=== PATIENT | female | born 1965 | race Caucasian/White ===

== ENCOUNTER 2016-12-04 11:43 | Emergency (ER) | payer BC ==
[~2016-12-04 11:43] MED LIST: ATORVASTATIN CA40 MG PO; B-125000 MC1 SL; BIOTIN PO; FARXIGA PO; LEVOTHYROXINE100 MCG PO; LOSARTAN POTASS25 MG PO; METFORMIN HCL500 MG PO; NEURONTIN300 MG PO
--- NOTE | 2016-12-04 13:38 | DIAGNOSTIC IMAGING REPORT ---
PROCEDURE: XR SHOULDER 2 OR MORE VW-LEFT INDICATION: ARM PAIN TECHNIQUE: Three views of the left shoulder COMPARISON: None. FINDINGS: Normal mineralization. No acute fractures. Normal bony alignment. There are multiple, at least three, slightly amorphous calcifications projecting over the greater tuberosity, some in the soft tissues of the rotator cuff tendon insertion. The undersurface of the acromion appears fairly smooth. No significant AC joint hypertrophy. The glenohumeral joint is intact. The visible rib arcs and the underlying lung are normal. IMPRESSION: 1. Findings of calcific tendonitis involving the rotator cuff tendon insertion site. 2. No fracture, dislocation, or separation.
--- NOTE | 2016-12-04 14:12 | ED ORDER SUMMARY ---
..... Patient: IVAN BYERS OrderSheet [facility] VisitID: [id number] [place] [address] 51y, F Registration Date/Time: 12/04/2016 ORDER SHEET Weight: 91.6 kg (stated) Allergies: Latex, morphine, Septra GENERAL ORDERS: Shoulder 2V or more Left Urgent (12:39 12/04/2016 Douglas Avila) (k 12:55 Isha) (14:34 Gustabo R.N.) MEDICATION ORDERS: Toradol IM 60 mg (NOW) (12:39 12/04/2016 Douglas Avila) (13:17 Karina R.NSakina) IV FLUIDS: ORDER SHEET NOTES: [Electronically signed by Elsie Thornton R.N. (14:34 12/04/2016)] [Electronically signed by Jim Israel Dr. (08:56 12/07/2016)] [Electronically locked/signed by Elsie Thornton R.N. (14:34 12/04/2016)]
--- NOTE | 2016-12-04 14:12 | ED CLINICAL REPORT ---
Clinical Report - Physicians/Mid Levels [facility] [address] [place] [address] 12/04/2016 11:44 Patient: IVAN BYERS Time Seen: 12:26; initial patient contact. Arrived- By private vehicle. Historian- patient. HISTORY OF PRESENT ILLNESS Chief Complaint: Injury to left shoulder. The injury happened about 1 week ago. Occurred at home. Patient did not fall. This was not a twisting injury. Patient is experiencing moderate pain. Patient denies injury to the head or neck. REVIEW OF SYSTEMS No swelling, tingling, numbness or weakness. She has had joint pain. All systems otherwise negative, except as recorded above. PAST HISTORY Restless Legs Syndrome. Hyperlipidemia. Fibromyalgia. Cervical Strain. Pharyngitis. Thyroid Disease. Diabetes Mellitus. Hypertension. Hypothyroidism. Hypercholesterolemia. ADDITIONAL SURGERIES: Hysterectomy. Lap band . Thyroid Surgery. Tonsillectomy. The patient's dominant hand is the right. SOCIAL HISTORY Never smoker. Occasional alcohol use. ADDITIONAL NOTES The nursing notes have been reviewed. PHYSICAL EXAM Vital Signs: 12/04/2016 12:07 BP: 136/94. HR: 100. RR: 18. O2 saturation: 99%. Temp: 98.4 F. Have been reviewed. Hypertensive. Tachycardic. Respiratory rate normal. Temperature normal. Oxygen saturation normal. Neck: Normal inspection. Neck supple. C-spine non-tender. Extremities: Left shoulder: moderate tenderness located in the deltoid muscle. Limited ROM due to pain (diminished abduction and extension). No erythema or swelling. Shoulder otherwise negative. Extremities otherwise negative. Neuro, Vascular and Tendons: Sensation intact. Motor intact. Vascular status intact. Tendon function intact. Neuro: Oriented X 3. No motor deficit. No sensory deficit. LABS, X-RAYS, AND EKG Lt Shoulder X-ray: (1. Findings of calcific tendonitis involving the rotator cuff tendon insertion site. 2. No fracture, dislocation, or separation.). Technique: good. The X-rays were independently viewed by me, interpreted by the radiologist and discussed with the radiologist. PROGRESS AND PROCEDURES Disposition: Discharged home in good and improved condition. Condition: good. CLINICAL IMPRESSION Acute calcific tendonitis in the left shoulder. INSTRUCTIONS Apply ice for 20 minutes four times a day. Don't apply ice directly to skin. Your Current Medications: CONTINUE TAKING THE FOLLOWING MEDICATIONS: Atorvastatin Calcium Oral. Farxiga Oral. Gabapentin Oral. GlyBURIDE Oral. Levothyroxine Sodium Oral. Losartan Potassium Oral. MetFORMIN HCl Oral. Sertraline HCl Oral. Prescription Medications: Zofran (orally disintegrating tablets) 4 mg: take 1 orally every 6 hours as needed for nausea and vomiting. Dispense ten (10). Substitution is permissible. Continue taking your pain medication that you have at home. Follow-up: Follow up with your doctor in about three days. Call for an appointment. Blood pressure screening was not performed during this visit because the patient has an active diagnosis of hypertension. (Electronically signed by Jim Israel Dr. 12/07/2016 8:56)
--- NOTE | 2016-12-04 14:12 | ED CLINICAL REPORT ---
Clinical Report - Physicians/Mid Levels [facility] [address] [place] [address] 12/04/2016 11:44 Patient: IVAN BYERS Time Seen: 12:26; initial patient contact. Arrived- By private vehicle. Historian- patient. HISTORY OF PRESENT ILLNESS Chief Complaint: Injury to left shoulder. The injury happened about 1 week ago. Occurred at home. Patient did not fall. This was not a twisting injury. Patient is experiencing moderate pain. Patient denies injury to the head or neck. REVIEW OF SYSTEMS No swelling, tingling, numbness or weakness. She has had joint pain. All systems otherwise negative, except as recorded above. PAST HISTORY Restless Legs Syndrome. Hyperlipidemia. Fibromyalgia. Cervical Strain. Pharyngitis. Thyroid Disease. Diabetes Mellitus. Hypertension. Hypothyroidism. Hypercholesterolemia. ADDITIONAL SURGERIES: Hysterectomy. Lap band . Thyroid Surgery. Tonsillectomy. The patient's dominant hand is the right. SOCIAL HISTORY Never smoker. Occasional alcohol use. ADDITIONAL NOTES The nursing notes have been reviewed. PHYSICAL EXAM Vital Signs: 12/04/2016 12:07 BP: 136/94. HR: 100. RR: 18. O2 saturation: 99%. Temp: 98.4 F. Have been reviewed. Hypertensive. Tachycardic. Respiratory rate normal. Temperature normal. Oxygen saturation normal. Neck: Normal inspection. Neck supple. C-spine non-tender. Extremities: Left shoulder: moderate tenderness located in the deltoid muscle. Limited ROM due to pain (diminished abduction and extension). No erythema or swelling. Shoulder otherwise negative. Extremities otherwise negative. Neuro, Vascular and Tendons: Sensation intact. Motor intact. Vascular status intact. Tendon function intact. Neuro: Oriented X 3. No motor deficit. No sensory deficit. LABS, X-RAYS, AND EKG Lt Shoulder X-ray: (1. Findings of calcific tendonitis involving the rotator cuff tendon insertion site. 2. No fracture, dislocation, or separation.). Technique: good. The X-rays were independently viewed by me, interpreted by the radiologist and discussed with the radiologist. PROGRESS AND PROCEDURES Disposition: Discharged home in good and improved condition. Condition: good. CLINICAL IMPRESSION Acute calcific tendonitis in the left shoulder. INSTRUCTIONS Apply ice for 20 minutes four times a day. Don't apply ice directly to skin. Your Current Medications: CONTINUE TAKING THE FOLLOWING MEDICATIONS: Atorvastatin Calcium Oral. Farxiga Oral. Gabapentin Oral. GlyBURIDE Oral. Levothyroxine Sodium Oral. Losartan Potassium Oral. MetFORMIN HCl Oral. Sertraline HCl Oral. Prescription Medications: Zofran (orally disintegrating tablets) 4 mg: take 1 orally every 6 hours as needed for nausea and vomiting. Dispense ten (10). Substitution is permissible. Continue taking your pain medication that you have at home. Follow-up: Follow up with your doctor in about three days. Call for an appointment. Blood pressure screening was not performed during this visit because the patient has an active diagnosis of hypertension. (Electronically signed by Jim Israel Dr. 12/07/2016 8:56)
--- NOTE | 2016-12-04 14:12 | ED ORDER SUMMARY ---
..... Patient: IVAN BYERS OrderSheet [facility] VisitID: [id number] [place] [address] 51y, F Registration Date/Time: 12/04/2016 ORDER SHEET Weight: 91.6 kg (stated) Allergies: Latex, morphine, Septra GENERAL ORDERS: Shoulder 2V or more Left Urgent (12:39 12/04/2016 Douglas Avila) (k 12:55 Isha) (14:34 Gustabo R.N.) MEDICATION ORDERS: Toradol IM 60 mg (NOW) (12:39 12/04/2016 Douglas Avila) (13:17 Karina R.NSakina) IV FLUIDS: ORDER SHEET NOTES: [Electronically signed by Elsie Thornton R.N. (14:34 12/04/2016)] [Electronically signed by Jim Israel Dr. (08:56 12/07/2016)] [Electronically locked/signed by Elsie Thornton R.N. (14:34 12/04/2016)]
--- NOTE | 2016-12-04 14:12 | ED NURSING NOTES ---
Clinical Report - Nurses [facility] [address] [place] [address] 12/04/2016 11:44 [id number] Triage time 12:Dec 04 2016. Acuity: LEVEL 3. Chief Complaint: INJURY TO LEFT SHOULDER. ETHAN COMA SCORE: [place] Coma Scale: 15- eyes open spontaneously (4); best verbal response- oriented x 4 (5); best motor response- obeys commands (6). --12:16 Zachery Elizabeth R.N. 12:07 12/04/16. BP: 136/94. HR: 100. RR: 18. O2 saturation: 99%. Temp: 98.4 F. Pain level now 4/10. --12:16 Zachery Elizabeth R.N. Weight: 91.6 kg stated. Height/Length: 62 inches Per Patient. BMI: 37. --12:11 Zachery Elizabeth R.N. Medications Levothyroxine Sodium Oral. --12:13 Zachery Elizabeth R.N. MetFORMIN HCl Oral. --12:13 Zachery Elizabeth R.N. GlyBURIDE Oral. --12:14 Zachery Elizabeth R.N. Farxiga Oral. --12:14 Zachery Elizabeth R.N. Gabapentin Oral. --12:14 Zachery Elizabeth R.N. Losartan Potassium Oral. --12:14 Zachery Elizabeth R.N. Sertraline HCl Oral. --12:14 Zachery Elizabeth R.N. Atorvastatin Calcium Oral. --12:15 Zachery Elizabeth R.N. Allergies Latex. --12:15 Zachery Elizabeth R.N. morphine. --12:15 Zachery Elizabeth R.N. Septra. --12:16 Zachery Elizabeth R.N. History Arrived by private vehicle. Historian: patient. Accompanied by family. This occurred (1 weeks ago). ( Patient states she can't move her left shoulder. Is having surgery in one week and called the ortho MD who gave her gabapentin and it's not working.). She has had neck pain and weakness. No numbness. PAST MEDICAL HX: Diabetes mellitus. Hypertension. No history of heart disease or lung disease. Immunizations: up-to-date. Has had a hysterectomy. SOCIAL HX: Never smoker. Occasional alcohol use. No drug use. SELF HARM ASSESSMENT: A self harm assessment was performed. The patient answered "no" to the question "Have you recently felt down, depressed, or hopeless?" and "Do you have thoughts of harming or killing yourself?". FALL RISK ASSESSMENT: Fall risk assessment completed. No fall risk identified. NUTRITIONAL RISK ASSESSMENT: The nutritional risk assessment revealed no deficiencies. FUNCTIONAL ASSESSMENT: Functional assessment: no impairments noted. LEARNING NEEDS ASSESSMENT: The learning needs assessment revealed no barriers. ABUSE ASSESSMENT: Abuse assessment: (yes) The patient was asked "Do you feel safe in your home?". SKIN INTEGRITY ASSESSMENT: Skin integrity risk assessment completed. No skin integrity risk identified. --12:16 Zachery Elizabeth R.N. PROBLEMS: Restless Legs Syndrome. Hyperlipidemia. Fibromyalgia. Cervical Strain. Pharyngitis. Tetanus Status. Immunizations. LNMP - Last Normal Menstrual Period. Thyroid Disease. Diabetes Mellitus. Hypertension. Hypothyroidism. Hypercholesterolemia. --12:16 Zachery Elizabeth R.N. ADDITIONAL SURGERIES: Hysterectomy. Lap band . Thyroid Surgery. Tonsillectomy. --12:16 Zachery Elizabeth R.N. Interventions ID band on patient. --12:16 Zachery Elizabeth R.N. PHYSICAL ASSESSMENT Ambulatory to room. GENERAL / NEURO / PSYCH: Oriented X 4. Appears anxious. EXTREMITIES: Capillary refill is less than 2 seconds in the extremities. Extremity pulses are within normal limits. Extremities exhibit normal ROM. Neuro-vascular status intact to the extremity. Left shoulder. Limited ROM. SKIN: Skin intact. Skin is warm and dry. --12:16 Zachery Elizabeth R.N. NURSING PROGRESS NOTES The initial plan of care for this patient includes an assessment with efforts to address patient positioning, appropriate ambient lighting and comfortable environmental temperature; impairment of the musculoskeletal system. Cold pack applied. Patient gowned. Reassurance given. Call light placed in reach. Side rails up x 1. Bed placed in lowest position. Brakes of bed on. --12:17 Zachery Elizabeth R.N. Extremity elevated. --12:17 Zachery Elizabeth R.N. 13:07 12/04/2016 Toradol (Ketorolac Tromethamine) IM 60 mg given. Given in the right gluteus liv. Allergies verified and confirmed 5 rights. --13:17 Zachery Elizabeth R.N. 13:35 12/04/16. BP: 130/69. HR: 78. RR: 15. O2 saturation: 94% on room air. Temp: 97.8 F. Pain level now: 07/31. Additional comments: pain when moving is 11/28. --13:35 Arabella Pedro. DISPOSITION / DISCHARGE 14:30. Condition at departure: improved. No learning barriers present. Reviewed medication(s) side effects, precautions, dosing and course information. Prescription(s) given to the patient. Patient verbalized understanding. Written instructions provided in Malay. The patient was discharged home. She left the Emergency Department ambulatory and via private vehicle. Patient driving. Medication list reviewed and validated. --14:34 Elsie Thornton R.N. 14:30 12/04/16. BP: 128/78. HR: 88. RR: 18. O2 saturation: 97%. Temp: deferred. Pain level now: 06/30. 13:35 12/04/16. BP: 130/69. HR: 78. RR: 15. O2 saturation: 94% on room air. Temp: 97.8 F. Pain level now: 07/31. Additional comments: pain when moving is 6/10. 12:07 12/04/16. BP: 136/94. HR: 100. RR: 18. O2 saturation: 99%. Temp: 98.4 F. Pain level now 09/28. --14:34 Elsie Thornton R.N. Locked/Released at 12/04/2016 14:34 by Elsie Thornton R.N.
--- NOTE | 2016-12-07 08:57 | ED DISCHARGE INSTRUCTIONS ---
Patient: IVAN BYERS General Instructions [facility] VisitID: [id number] [place] [address] 51y, F Registration Date/Time: 12/04/2016 Acute calcific tendonitis in the left shoulder. INSTRUCTIONS Apply ice for 20 minutes four times a day. Don't apply ice directly to skin. Your Current Medications: CONTINUE TAKING THE FOLLOWING MEDICATIONS: Atorvastatin Calcium Oral. Farxiga Oral. Gabapentin Oral. GlyBURIDE Oral. Levothyroxine Sodium Oral. Losartan Potassium Oral. MetFORMIN HCl Oral. Sertraline HCl Oral. Prescription Medications: Zofran (orally disintegrating tablets) 4 mg: take 1 orally every 6 hours as needed for nausea and vomiting. Dispense ten (10). Substitution is permissible. Continue taking your pain medication that you have at home. Follow-up: Follow up with your doctor in about three days. Call for an appointment. Blood pressure screening was not performed during this visit because the patient has an active diagnosis of hypertension. ADDITIONAL INFORMATION Tendonitis A tendon is the thick fibrous cord that joins muscle to bone and causes joints to move. Tendonitis is inflammation of the tendon which may be due to overuse, injury or infection. This usually involves the shoulders, forearm, wrist, hands and foot. Symptoms include local pain, swelling and tenderness to the touch. Movement of the involved joint increases the pain. Tendonitis requires about 4 to 6 weeks to heal. It is treated by preventing motion of the tendon with a splint or brace and use of anti-inflammatory medicine. Home Care: Apply an ice pack (ice cubes in a plastic bag, wrapped in a towel) over the injured area for 20 minutes every 1-2 hours the first day for pain relief. Continue this 3-4 times a day until the pain and swelling goes away. Rest the inflamed joint and protect it from movement. You may use ibuprofen (Motrin, Advil) or naproxen (Aleve, Naprosyn) to treat pain and inflammation, unless another medicine was prescribed. If you can't take these medicines, acetaminophen (Tylenol) may help with the pain, but does not treat inflammation. [NOTE : If you have chronic liver or kidney disease or ever had a stomach ulcer or GI bleeding, talk with your doctor before using these medicines.] As your symptoms improve, begin gradual motion at the involved joint. Follow Up With Your Doctor If Not Improving After The First Five Days Of Treatment. Get Prompt Medical Attention If Any Of The Following Occur: Redness over the painful area Increasing pain or swelling at the joint Fever of 100.4F (38C) or higher, or as directed by your healthcare provider Ondansetron Oral disintegrating tablet What is this medicine? ONDANSETRON (on KIMBERLEY se louis) is used to treat nausea and vomiting caused by chemotherapy. It is also used to prevent or treat nausea and vomiting after surgery. How should I use this medicine? These tablets are made to dissolve in the mouth. Do not try to push the tablet through the foil backing. With dry hands, peel away the foil backing and gently remove the tablet. Place the tablet in the mouth and allow it to dissolve, then swallow. While you may take these tablets with water, it is not necessary to do so. Talk to your recruiter regarding the use of this medicine in children. Special care may be needed. What side effects may I notice from receiving this medicine? Side effects that you should report to your doctor or health career services officer as soon as possible: allergic reactions like skin rash, itching or hives, swelling of the face, lips, or tongue breathing problems dizziness fast or irregular heartbeat feeling faint or lightheaded, falls fever and chills swelling of the hands and feet tightness in the chest Side effects that usually do not require medical attention (report to your doctor or health career services officer if they continue or are bothersome): constipation or diarrhea headache What may interact with this medicine? Do not take this medicine with any of the following medications: -apomorphine -cisapride -dofetilide -dronedarone -pimozide -thioridazine -ziprasidone This medicine may also interact with the following medications: -carbamazepine -phenytoin -rifampicin -tramadol -other medicines that prolong the QT interval (cause an abnormal heart rhythm) What if I miss a dose? If you miss a dose, take it as soon as you can. If it is almost time for your next dose, take only that dose. Do not take double or extra doses. Where should I keep my medicine? Keep out of the reach of children. Store between 2 and 30 degrees C (36 and 86 degrees F). Throw away any unused medicine after the expiration date. What should I tell my health care provider before I take this medicine? They need to know if you have any of these conditions: heart disease history of irregular heartbeat liver disease low levels of magnesium or potassium in the blood an unusual or allergic reaction to ondansetron, granisetron, other medicines, foods, dyes, or preservatives or trying to get breast-feeding What should I watch for while using this medicine? Check with your doctor or health career services officer as soon as you can if you have any sign of an allergic reaction. You have been given the following additional information: Tendonitis Ondansetron Oral disintegrating tablet (Electronically signed by Jim Israel Dr. 12/07/2016 8:56)
--- NOTE | 2016-12-07 08:57 | ED MAR SUMMARY ---
..... Medication Administration Record [facility] [address] [place] [address] Patient: IVAN BYERS Visit ID: [id number] 51y, F Weight: 91.6 kg Height/Length: 62 in BMI: 37 ALLERGIES: Septra, morphine, Latex Given 13:07 12/04/2016 Zachery Elizabeth RRenata Medication Administered: TORADOL [IM] (KETOROLAC TROMETHAMINE), Dose: 60 mg IM. Medication Ordered: Toradol IM 60 mg (NOW).
--- NOTE | 2016-12-07 08:57 | ED MAR SUMMARY ---
..... Medication Administration Record [facility] [address] [place] [address] Patient: IVAN BYERS Visit ID: [id number] 51y, F Weight: 91.6 kg Height/Length: 62 in BMI: 37 ALLERGIES: Septra, morphine, Latex Given 13:07 12/04/2016 Zachery Elizabeth RRenata Medication Administered: TORADOL [IM] (KETOROLAC TROMETHAMINE), Dose: 60 mg IM. Medication Ordered: Toradol IM 60 mg (NOW).
--- NOTE | 2016-12-07 08:57 | ED MED RECONCILIATION SUMMARY ---
Patient: IVAN BYERS Medication Reconciliation Report [facility] VisitID: [id number] [place] [address] 51y, F Registration Date/Time: 12/04/2016 Weight: 91.6 kg Height/Length: 62 in. BMI: 37.0 ALLERGIES: Latex, morphine, Septra The patient's Home Medications are listed below: CONTINUE TAKING THE FOLLOWING MEDICATIONS: Atorvastatin Calcium Oral Farxiga Oral Gabapentin Oral GlyBURIDE Oral Levothyroxine Sodium Oral Losartan Potassium Oral MetFORMIN HCl Oral Sertraline HCl Oral The source(s) of the original Home Medication information: Not obtained. The following Medications were given to the patient in the Emergency Department: Toradol [IM] IM 60 mg, administered: 12/04/2016 1:07:00 PM The following Medications were prescribed to the patient: Zofran (orally disintegrating tablets) 4 mg: take 1 orally every 6 hours as needed for nausea and vomiting. Dispense ten (10). Substitution is permissible. -- Jim Israel Dr. Continue taking your pain medication that you have at home. -- Jim Israel Dr.
--- NOTE | 2016-12-07 08:57 | ED DISCHARGE INSTRUCTIONS ---
Patient: IVAN BYERS General Instructions [facility] VisitID: [id number] [place] [address] 51y, F Registration Date/Time: 12/04/2016 Acute calcific tendonitis in the left shoulder. INSTRUCTIONS Apply ice for 20 minutes four times a day. Don't apply ice directly to skin. Your Current Medications: CONTINUE TAKING THE FOLLOWING MEDICATIONS: Atorvastatin Calcium Oral. Farxiga Oral. Gabapentin Oral. GlyBURIDE Oral. Levothyroxine Sodium Oral. Losartan Potassium Oral. MetFORMIN HCl Oral. Sertraline HCl Oral. Prescription Medications: Zofran (orally disintegrating tablets) 4 mg: take 1 orally every 6 hours as needed for nausea and vomiting. Dispense ten (10). Substitution is permissible. Continue taking your pain medication that you have at home. Follow-up: Follow up with your doctor in about three days. Call for an appointment. Blood pressure screening was not performed during this visit because the patient has an active diagnosis of hypertension. ADDITIONAL INFORMATION Tendonitis A tendon is the thick fibrous cord that joins muscle to bone and causes joints to move. Tendonitis is inflammation of the tendon which may be due to overuse, injury or infection. This usually involves the shoulders, forearm, wrist, hands and foot. Symptoms include local pain, swelling and tenderness to the touch. Movement of the involved joint increases the pain. Tendonitis requires about 4 to 6 weeks to heal. It is treated by preventing motion of the tendon with a splint or brace and use of anti-inflammatory medicine. Home Care: Apply an ice pack (ice cubes in a plastic bag, wrapped in a towel) over the injured area for 20 minutes every 1-2 hours the first day for pain relief. Continue this 3-4 times a day until the pain and swelling goes away. Rest the inflamed joint and protect it from movement. You may use ibuprofen (Motrin, Advil) or naproxen (Aleve, Naprosyn) to treat pain and inflammation, unless another medicine was prescribed. If you can't take these medicines, acetaminophen (Tylenol) may help with the pain, but does not treat inflammation. [NOTE : If you have chronic liver or kidney disease or ever had a stomach ulcer or GI bleeding, talk with your doctor before using these medicines.] As your symptoms improve, begin gradual motion at the involved joint. Follow Up With Your Doctor If Not Improving After The First Five Days Of Treatment. Get Prompt Medical Attention If Any Of The Following Occur: Redness over the painful area Increasing pain or swelling at the joint Fever of 100.4F (38C) or higher, or as directed by your healthcare provider Ondansetron Oral disintegrating tablet What is this medicine? ONDANSETRON (on [place]) is used to treat nausea and vomiting caused by chemotherapy. It is also used to prevent or treat nausea and vomiting after surgery. How should I use this medicine? These tablets are made to dissolve in the mouth. Do not try to push the tablet through the foil backing. With dry hands, peel away the foil backing and gently remove the tablet. Place the tablet in the mouth and allow it to dissolve, then swallow. While you may take these tablets with water, it is not necessary to do so. Talk to your otolaryngology surgeon regarding the use of this medicine in children. Special care may be needed. What side effects may I notice from receiving this medicine? Side effects that you should report to your doctor or health hearing care practitioner as soon as possible: allergic reactions like skin rash, itching or hives, swelling of the face, lips, or tongue breathing problems dizziness fast or irregular heartbeat feeling faint or lightheaded, falls fever and chills swelling of the hands and feet tightness in the chest Side effects that usually do not require medical attention (report to your doctor or health hearing care practitioner if they continue or are bothersome): constipation or diarrhea headache What may interact with this medicine? Do not take this medicine with any of the following medications: -apomorphine -cisapride -dofetilide -dronedarone -pimozide -thioridazine -ziprasidone This medicine may also interact with the following medications: -carbamazepine -phenytoin -rifampicin -tramadol -other medicines that prolong the QT interval (cause an abnormal heart rhythm) What if I miss a dose? If you miss a dose, take it as soon as you can. If it is almost time for your next dose, take only that dose. Do not take double or extra doses. Where should I keep my medicine? Keep out of the reach of children. Store between 2 and 30 degrees C (36 and 86 degrees F). Throw away any unused medicine after the expiration date. What should I tell my health care provider before I take this medicine? They need to know if you have any of these conditions: heart disease history of irregular heartbeat liver disease low levels of magnesium or potassium in the blood an unusual or allergic reaction to ondansetron, granisetron, other medicines, foods, dyes, or preservatives or trying to get breast-feeding What should I watch for while using this medicine? Check with your doctor or health hearing care practitioner as soon as you can if you have any sign of an allergic reaction. You have been given the following additional information: Tendonitis Ondansetron Oral disintegrating tablet (Electronically signed by Jim Israel Dr. 12/07/2016 8:56)
--- NOTE | 2016-12-07 08:57 | ED MED RECONCILIATION SUMMARY ---
Patient: IVAN BYERS Medication Reconciliation Report [facility] VisitID: [id number] [place] [address] 51y, F Registration Date/Time: 12/04/2016 Weight: 91.6 kg Height/Length: 62 in. BMI: 37.0 ALLERGIES: Latex, morphine, Septra The patient's Home Medications are listed below: CONTINUE TAKING THE FOLLOWING MEDICATIONS: Atorvastatin Calcium Oral Farxiga Oral Gabapentin Oral GlyBURIDE Oral Levothyroxine Sodium Oral Losartan Potassium Oral MetFORMIN HCl Oral Sertraline HCl Oral The source(s) of the original Home Medication information: Not obtained. The following Medications were given to the patient in the Emergency Department: Toradol [IM] IM 60 mg, administered: 12/04/2016 1:07:00 PM The following Medications were prescribed to the patient: Zofran (orally disintegrating tablets) 4 mg: take 1 orally every 6 hours as needed for nausea and vomiting. Dispense ten (10). Substitution is permissible. -- Jim Israel Dr. Continue taking your pain medication that you have at home. -- Jim Israel Dr.
== END 2016-12-04 14:30 | disposition home or self-care (01) ==
LOC: ED SRH 11:43
DX: M75.32 Calcific tendinitis of left shoulder (principal); X58.XXXA Exposure to other specified factors, initial encounter; Y93.9 Activity, unspecified; Y92.009 Unspecified place in unspecified non-institutional (private) residence as the place of occurrence of the external cause; Y99.9 Unspecified external cause status; I10 Essential (primary) hypertension; E11.9 Type 2 diabetes mellitus without complications; Z88.5 Allergy status to narcotic agent